=== PATIENT | male | born 1985 ===

== ENCOUNTER 2018-02-09 03:45 | Emergency (ER) | payer SELFPAY ==
[2018-02-09 03:48] VITALS: BMI 22.3
[2018-02-09] MEDS ORDERED: Sodium Chloride 0.9% 1,000 ML IV STA (04:44)
--- NOTE | 2018-02-09 04:55 | ED PDOC ---
HPI: Psych/Substance Abuse Time Seen by Provider: 02/09/18 03:47 Chief Complaint (Nursing): Alcohol Ingestion Chief Complaint (Provider): Alcohol ingestion History Per: Patient History/Exam Limitations: no limitations Current Symptoms Are (Timing): Still Present Modifying Factor(s): Alcohol, Other (Zoloft) Associated Symptoms: Depression Additional Complaint(s): Georges Merrill, a 32 year old male with a past medical history of depression , presents to the emergency room for alcohol ingestion and overdose onset tonight. Patient admits to using alcohol tonight along with 20-30 tabs of Zoloft that are 100 mg tabs each and split in half. Patient reports that the Zoloft was not prescribed to him rather to his friend's brother's. He self medicates because he does not have insurance and therefore cannot receive his own. Patient does admit to feeling depressed. No further medical complaints PMD: None Provided Past Medical History Reviewed: Historical Data, Nursing Documentation, Vital Signs Vital Signs: Last Vital Signs Temp 98.2 F 02/09/18 03:58 Pulse 90 02/09/18 03:58 Resp 16 02/09/18 03:58 BP 151/87 H 02/09/18 03:58 Pulse Ox 98 02/09/18 03:58 - Medical History PMH: Depression - Surgical History Surgical History: No Surg Hx - Family History Family History: States: Unknown Family Hx - Social History Drugs: Other (Zoloft) - Allergies Allergies/Adverse Reactions: Allergies Allergy/AdvReac Type Severity Reaction Status Date / Time No Known Allergies Allergy Verified 02/09/18 03:59 Review of Systems ROS Statement: Except As Marked, All Systems Reviewed And Found Negative Psych: Positive for: Depression (admitted feeling) Physical Exam - Reviewed Nursing Documentation Reviewed: Yes Vital Signs Reviewed: Yes - Physical Exam Appears: Positive for: No Acute Distress Head Exam: Positive for: ATRAUMATIC, NORMAL INSPECTION, NORMOCEPHALIC Skin: Positive for: Normal Color, Warm, Dry Eye Exam: Positive for: EOMI, Normal appearance, PERRL ENT: Positive for: Normal ENT Inspection Neck: Positive for: Normal, Painless ROM Cardiovascular/Chest: Positive for: Regular Rate, Rhythm Respiratory: Positive for: Normal Breath Sounds. Negative for: Respiratory Distress Gastrointestinal/Abdominal: Positive for: Normal Exam, Soft. Negative for: Tenderness Back: Positive for: Normal Inspection Extremity: Positive for: Normal ROM (upper and lower). Negative for: Deformity , Swelling Neurologic/Psych: Positive for: Alert, Oriented. Negative for: Motor/Sensory Deficits - Laboratory Results Result Diagrams: 02/09/18 04:57 02/09/18 04:57 - ECG O2 Sat by Pulse Oximetry: 98 (RA) Pulse Ox Interpretation: Normal - Critical Care Total Time (In Min): 30 Medical Decision Making Medical Decision Making: Time: 03:47 Initial Impression: 32 year old male status post Zoloft overdose in setting of alcohol use Initial Plan: --EKG --Acetaminophen --Alcohol serum --CMP --Salicylate --Poison control consult --CBC w/ differential --PTT --Prothrombin time --Sodium chloride 1000 ml IV 1000 mls/hr --Heplock insertion --Observation --Call poison control --Accucheck 05:10 -Spoke with poison controlShantel, who advised symptomatic, supportive care at this time and to repeat EKG in x4 hrs. Time: 07:00 Patient will be signed to pending reevaluation in 4 hrs from presentation Scribe Attestation: Documented by Mary Reinoso, acting as a scribe for Gratn Schuster MD. Provider Scribe Attestation: All medical record entries made by the Scribe were at my direction and personally dictated by me. I have reviewed the chart and agree that the record accurately reflects my personal performance of the history, physical exam, medical decision making, and the department course for this patient. I have also personally directed, reviewed, and agree with the discharge instructions and disposition. Disposition - Clinical Impression Clinical Impression: Alcohol abuse, OD (overdose of drug) - Disposition Referrals: [facility] [place] [Outside] Disposition: Transfer of Care Disposition Time: 07:00 Condition: FAIR Additional Instructions: FOLLOW UP AT [address] FEBRUARY 14, 2018 AT 9:20AM WITH STEVE FONSECA Instructions: Adjustment Disorder, Alcohol Abuse and Alcoholism (DC) Forms: [employer] (Croatian) Patient Signed Over To: Sumit Mccollum
[2018-02-09 05:00] LABS: BASO # 0.1 K/uL (0.0-0.2); BASO % 0.9 % (0.0-2.0); EOS % 0.2 % (0.0-4.0); HEMOGLOBIN 16.8 g/dL (12.0-18.0); LYMPH # 3.3 K/uL (1.0-4.3); LYMPH % 42.2 % (20.0-40.0); MEAN CELL VOLUME 94.3 fl (80.0-94.0); MEAN CORPUSCULAR HEMOGLOBIN 32.1 pg (27.0-31.0); MEAN CORPUSCULAR HGB CONC 34.1 g/dL (33.0-37.0); MEAN PLATELET VOLUME 7.9 fl (7.2-11.7); MONO # 0.4 K/uL (0.0-0.8); MONO % 5.2 % (0.0-10.0); NEUT % 51.5 % (50.0-75.0); RBC 5.23 Mil/uL (4.40-5.90); RED CELL DISTRIBUTION WIDTH 13.5 % (11.5-14.5); WHITE BLOOD COUNT 7.8 K/uL (4.8-10.8)
[2018-02-09 05:09] LABS: PARTIAL THROMBOPLASTIN TIME 33.1 Seconds (25.6-37.1)
[2018-02-09 05:10] LABS: ACETAMINOPHEN < 10.0 ug/ml (10.0-30.0); ALB/GLOB RATIO 1.5 (1.0-2.1); ALBUMIN 5.4 g/dL (3.5-5.0); ALT/SGPT 27 U/L (21-72); AST/SGOT 44 U/L (17-59); BLOOD UREA NITROGEN 10 mg/dl (9-20); CALCIUM 9.7 mg/dL (8.4-10.2); GFR AFRICAN-AMERICAN > 60; GFR NON-AFRICAN AMERICAN > 60; SALICYLATE < 1.0 mg/dl
--- NOTE | 2018-02-09 13:32 | ED PDOC ---
- Laboratory Results Result Diagrams: 02/09/18 04:57 02/09/18 04:57 - ECG O2 Sat by Pulse Oximetry: 95 - Progress Re-evaluation Time: 13:31 Condition: Improved (Denies SI/HI) Disposition - Clinical Impression Clinical Impression: Alcohol abuse, Adjustment disorder - POA Present On Arrival: None - Disposition Referrals: [facility] [place] [Outside] Disposition: Routine/Home Disposition Time: 13:31 Condition: FAIR Additional Instructions: FOLLOW UP AT [address] FEBRUARY 14, 2018 AT 9:20AM WITH STEVE FONSECA Instructions: Adjustment Disorder, Alcohol Abuse and Alcoholism (DC) Forms: [employer] (Khmer)
[2018-02-09 13:38] VITALS: BP 114/66; PULSE 70; RESP 14; TEMP 98.2
--- NOTE | 2018-02-09 20:03 | CARD ---
APPROVED REPORT Date of service: 02/09/2018 EKG Measurement Heart [id number] <Conclusion> Normal sinus rhythm Normal ECG
[2018-02-09 20:25] VITALS: O2SAT 98
== END 2018-02-09 13:37 | disposition home or self-care (01) ==
LOC: H.ER 03:45
DX: F10.10 Alcohol abuse, uncomplicated (principal); T43.224A Poisoning by selective serotonin reuptake inhibitors, undetermined, initial encounter; F32.9 Major depressive disorder, single episode, unspecified; F43.20 Adjustment disorder, unspecified; Y90.8 Blood alcohol level of 240 mg/100 ml or more
CPT/HCPCS: 80053; 82948; 83735; 85025; 85610; 85730; 93005; 99285; G0480; J7030